=== PATIENT | female | born 1965 | race Caucasian/White ===

== ENCOUNTER 2022-04-12 23:26 | Emergency (ER) | payer OTHER, BC ==
[2022-04-13] MEDS ORDERED: Ketorolac Tromethamine 60 MG/2 ML VIAL ONE (00:31)
[2022-04-13] MEDS ORDERED: Cyclobenzaprine 10 MG TAB ONE (00:32)
== END 2022-04-13 00:59 | disposition home or self-care (01) ==
LOC: NAV ERS 23:26
DX: S16.1XXA Strain of muscle, fascia and tendon at neck level, initial encounter (principal); E11.9 Type 2 diabetes mellitus without complications; Z79.84 Long term (current) use of oral hypoglycemic drugs; Z79.899 Other long term (current) drug therapy; V89.2XXA Person injured in unspecified motor-vehicle accident, traffic, initial encounter
CPT/HCPCS: 70450; 72125; 96372; G0390; J1885